=== PATIENT | female | born 1950 | race Caucasian/White ===

== ENCOUNTER → 2017-02-18 | Outpatient (CLI) | payer MEDICARE, OTHER ==
[2017-02-18 14:51] VITALS: BP 176/86; PULSE 74; RESP 16; TEMP 98.3; BMI 37.3
[2017-02-18 15:50] LABS: EKG EKG PERFORMED
[2017-02-18 16:14] LABS: CH 30.4; CHCM 33.6; HCT 41.8 % (34.0-46.0); HDW 3.32; HGB 13.8 gm/dL (11.4-16.0); MCH 30.1 pg (25.0-35.0); MCHC 33.1 g/dL (31.0-37.0); MCV 90.9 fL (80.0-100.0); Mean Platelet Volume 8.1; RDW 15.5 % (11.5-15.5); WBC 8.6 k/uL (3.8-10.6)
[2017-02-18 16:45] LABS: ALT 58 U/L (9-52); AST 58 U/L (14-36); Alkaline Phosphatase 109 U/L (38-126); Anion Gap 13 mmol/L; Blood Urea Nitrogen 19 mg/dL (7-17); Calcium 11.1 mg/dL (8.4-10.2); Carbon Dioxide 28 mmol/L (22-30); Chloride 102 mmol/L (98-107); Cholesterol 163 mg/dL (<200); Glucose 87 mg/dL (74-99); HDL Cholesterol 41 mg/dL (40-60); Iron 74 ug/dL (37-170); Non-African American GFR(MDRD) >60 (>60 ml/min/1.73 sqM); Potassium 4.3 mmol/L (3.5-5.1); Sodium 143 mmol/L (137-145); Total Bilirubin 0.8 mg/dL (0.2-1.3); Total Protein 7.9 g/dL (6.3-8.2)
[2017-02-18 16:55] LABS: % Iron Saturation 19.8 % (20-50); Total Iron Binding Capacity 374 ug/dL (265-497)
[2017-02-18 17:53] LABS: Vitamin B12 618 pg/mL
[2017-02-21 14:23] LABS: Anabasine Urine <2.0 ng/mL (<2.0)
--- NOTE | 2017-03-01 17:03 | P.PN ---
Progress Note - Text DATE OF SERVICE: 02/18/2017 CHIEF COMPLAINT: Initial bariatric assessment. HISTORY OF PRESENT ILLNESS: Susana Neff is a 67-year-old female who presents for the first time at the bariatric center. She has developed hypertension including diabetes from her obesity. She has tried weight loss in the past and has history of food addiction. At her height of 5 feet and 1/4 inch, her ideal body weight is 131 pounds. She comes in 199 pounds. She is 68 pounds overweight. Her body mass index is 37.3. PAST MEDICAL HISTORY: 1. Hypertension. 2. Hyperlipidemia. 3. Diabetes type 2. 4. Squamous cell cancer. PAST SURGICAL HISTORY: 1. Appendectomy. 2. Hysterectomy. 3. Cholecystectomy. 4. . 5. Excision of squamous cell cancer. MEDICATIONS: 1. Metformin. 2. Zocor. 3. Claritin. 4. Prinivil. 5. Hydrochlorothiazide. 6. Aspirin. ALLERGIES: Denies. SOCIAL HISTORY: Reports alcohol use. Lifelong non-tobacco use. FAMILY HISTORY: Pertinent for morbid obesity. Also has diabetes in her family as well as hypertension. REVIEW OF SYSTEMS: CONSTITUTIONAL: At her height of 5 feet and 1/4 inch, her ideal body weight is 131 pounds. She comes in 199 pounds. She is 68 pounds overweight. Her body mass index is 37.3. HEENT: Denies any troubles with dysphagia. No reports with troubles with vision, hearing or nosebleeds. ENDOCRINE: No reports of known thyroid disorders. Has blood sugar glucose intolerance. CARDIOVASCULAR: Has hypertension. Has hyperlipidemia. GASTROINTESTINAL: Reports gastroesophageal reflux disease. Denies any diarrhea. RESPIRATORY: Has obstructive sleep apnea. No recent pneumonia. MUSCULOSKELETAL: Has diffuse osteoarthritis including of the lower back and hips and knees. PSYCH: No history of depression or bipolar disorder. NEURO: No history of stroke or seizure disorder. HEMATOLOGIC: No reports of easy bruising or bleeding. SKIN: Past history of skin cancer. PHYSICAL EXAM: VITAL SIGNS: 5 foot 1.25, 199 pounds. Body mass index of 37.3 Vital Signs 02/18/17 14:47 Temperature 98.3 F Pulse Rate 74 Respiratory 16 Rate Blood Pressure 176/86 GENERAL: Well-developed, pleasant female in no acute distress. HEENT: No sclerae icterus. Extraocular movements grossly intact. Moist buccal mucosa. NECK: Supple without lymphadenopathy. CHEST: Nonlabored respirations. Equal bilateral excursions. ABDOMEN: Soft, nontender, nondistended. CARDIOVASCULAR: Regular rate and rhythm. MUSCULOSKELETAL: No clubbing, cyanosis, or edema. PSYCH: Appropriate affect. Alert and oriented to person, place, and time. NEURO: No focal or lateralizing signs. Cranial nerves II through XII grossly within normal limits. SKIN: Well perfused. Good skin turgor. LABS: Elevated calcium. Has elevated AST and ALT. Has low vitamin D. Laboratory Last Values WBC 8.6 k/uL (3.8-10.6) 02/18/17 15:44 RBC 4.60 m/uL (3.80-5.40) 02/18/17 15:44 Hgb 13.8 gm/dL (11.4-16.0) 02/18/17 15:44 Hct 41.8 % (34.0-46.0) 02/18/17 15:44 MCV 90.9 fL (80.0-100.0) 02/18/17 15:44 MCH 30.1 pg (25.0-35.0) 02/18/17 15:44 MCHC 33.1 g/dL (31.0-37.0) 02/18/17 15:44 RDW 15.5 % (11.5-15.5) 02/18/17 15:44 Plt Count 217 k/uL (150-450) 02/18/17 15:44 Sodium 143 mmol/L (137-145) 02/18/17 15:44 Potassium 4.3 mmol/L (3.5-5.1) 02/18/17 15:44 Chloride 102 mmol/L (98-107) 02/18/17 15:44 Carbon Dioxide 28 mmol/L (22-30) 02/18/17 15:44 Anion Gap 13 mmol/L 02/18/17 15:44 BUN 19 mg/dL (7-17) H 02/18/17 15:44 Creatinine 0.70 mg/dL (0.52-1.04) 02/18/17 15:44 Est GFR (MDRD) Af Amer >60 (>60 ml/min/1.73 sqM) 02/18/17 15:44 Est GFR (MDRD) Non-Af >60 (>60 ml/min/1.73 sqM) 02/18/17 15:44 Glucose 87 mg/dL (74-99) 02/18/17 15:44 Calcium 11.1 mg/dL (8.4-10.2) H 02/18/17 15:44 Iron 74 ug/dL (37-170) 02/18/17 15:44 TIBC 374 ug/dL (265-497) 02/18/17 15:44 % Saturation 19.8 % (20-50) L 02/18/17 15:44 Ferritin 90 ng/mL (11-264) 02/18/17 15:44 Total Bilirubin 0.8 mg/dL (0.2-1.3) 02/18/17 15:44 AST 58 U/L (14-36) H 02/18/17 15:44 ALT 58 U/L (9-52) H 02/18/17 15:44 Alkaline Phosphatase 109 U/L (38-126) 02/18/17 15:44 Total Protein 7.9 g/dL (6.3-8.2) 02/18/17 15:44 Albumin 4.5 g/dL (3.5-5.0) 02/18/17 15:44 Triglycerides 213 mg/dL (<150) H 02/18/17 15:44 Cholesterol 163 mg/dL (<200) 02/18/17 15:44 LDL Cholesterol, Calc 79 mg/dL (0-99) 02/18/17 15:44 HDL Cholesterol 41 mg/dL (40-60) 02/18/17 15:44 Vitamin B1 70 ug/L (38-122) 02/18/17 15:44 Vitamin B12 618 pg/mL 02/18/17 15:44 Vitamin D 25-Hydroxy 16.1 ng/mL (30.0-100.0) L 02/18/17 15:44 Folate 12.00 ng/mL 02/18/17 15:44 TSH 0.582 mIU/L (0.465-4.680) 02/18/17 15:44 Urine Cotinine <5.0 ng/mL (<5.0) 02/18/17 15:44 Urine Nicotine <2.0 ng/mL (<2.0) 02/18/17 15:44 Urine Anabasine <2.0 ng/mL (<2.0) 02/18/17 15:44 EKG EKG PERFORMED 02/18/17 15:44 ASSESSMENT: 1. Morbid obesity due to excess calories. 2. Body mass index 37.3. 3. Osteoarthritis of bilateral hips. 4. Osteoarthritis of lower back. 5. Family history of morbid obesity. 6. Family history of diabetes type 2. 7. Hypertensive heart disease. 8. History of elevated liver enzymes. 9. Gastroesophageal reflux disease. 10. Dietary surveillance and counseling. 11. Elevated AST. 12. Elevated ALT. 13. Hypertriglyceridemia. 14. Hypercalcemia. 15. Diabetes type 2. 16. Vitamin D deficiency. PLAN: 1. Recommend bariatric metabolic panel. 2. Psych assessment per insurance guideline. 3. Medical risk assessment. 4. Recommend upper endoscopy for gastroesophageal reflux disease. 5. Vitamin D treatment of his 50,000 units weekly. 6. Benefits and risks of all bariatric procedures were described in detail including band, sleeve, gastric bypass.
== END | disposition home or self-care (01) ==
LOC: BARWHC3 13:27
PROVIDERS: ATTEND Surgery Plastic and Reconstructive Surgery
DX: Z48.815 Encounter for surgical aftercare following surgery on the digestive system (principal); E66.01 Morbid (severe) obesity due to excess calories; M16.0 Bilateral primary osteoarthritis of hip; M47.816 Spondylosis without myelopathy or radiculopathy, lumbar region; I11.9 Hypertensive heart disease without heart failure; K21.9 Gastro-esophageal reflux disease without esophagitis; E11.9 Type 2 diabetes mellitus without complications; E78.00 Pure hypercholesterolemia, unspecified; E83.52 Hypercalcemia; E55.9 Vitamin D deficiency, unspecified; R74.0 Nonspecific elevation of levels of transaminase and lactic acid dehydrogenase [LDH]; D50.8 Other iron deficiency anemias; E44.0 Moderate protein-calorie malnutrition; Z79.82 Long term (current) use of aspirin; Z79.899 Other long term (current) drug therapy; Z98.84 Bariatric surgery status; Z68.37 Body mass index [BMI] 37.0-37.9, adult
CPT/HCPCS: 84425; 80061; 80053; 82607; 82728; 82746; 83540; 83550; 84443; 85027; 82306; 93005; G0480; G0463; 80323; 99211

== ENCOUNTER 2017-03-11 07:17 | Day surgery (SDC) | payer MEDICARE, OTHER ==
[2017-03-09 17:47] VITALS: BMI 38.5
[~2017-03-11 07:17] MED LIST: LACTATED RINGERS 1,000 ML IV SCH
[2017-03-11 07:40] VITALS: TEMP 97.4
[2017-03-11] MEDS ORDERED: LIDOCAINE 1% 20 ML VIAL (10MG/ML) FOR IV START INTRADERMA ONE (07:52)
[2017-03-11 07:55] LABS: Glucose,Whole Blood 112 mg/dL (75-99)
[2017-03-11] MEDS ORDERED: PROPOFOL 10 MG/ML 100 ML VIAL IV ONE (07:58)
--- NOTE | 2017-03-11 08:00 | P.GSHP ---
History of Present Illness H&P Date: 03/11/17 CHIEF COMPLAINT: GERD HISTORY OF PRESENT ILLNESS: The patient is a 67-year-old female who presents reports gastroesophageal reflux disease. Upper endoscopy was offered for further evaluation and management. PAST MEDICAL HISTORY: Please see list. PAST SURGICAL HISTORY: Please see list. MEDICATIONS: Please see list. ALLERGIES: Please see list. SOCIAL HISTORY: No illicit drug use FAMILY HISTORY: No reports of Crohn disease or ulcerative colitis. REVIEW OF ORGAN SYSTEMS: CONSTITUTIONAL: No reports of fevers or chills. GI: Denies any blood in stools or constipation. PHYSICAL EXAM: VITAL SIGNS: Stable GENERAL: Well-developed and pleasant in no acute distress. HEENT: No scleral icterus. Extraocular movements grossly intact. Moist buccal mucosa. NECK: Supple without lymphadenopathy. CHEST: Unlabored respirations. Equal bilateral excursions. CARDIOVASCULAR: Regular rate and rhythm. Distal 2+ pulses. ABDOMEN: Soft, nondistended. MUSCULOSKELETAL: No clubbing, cyanosis, or edema. ASSESSMENT: 1. Gastroesophageal reflux disease PLAN: 1. Recommend proceeding with an upper endoscopy Past Medical History Past Medical History: Cancer, Diabetes Mellitus, Hyperlipidemia, Hypertension Additional Past Medical History / Comment(s): SQUAMOUS CELL CA RT EAR, STATES PRE DIABETIC History of Any Multi-Drug Resistant Organisms: None Reported Past Surgical History: Appendectomy, Section, Cholecystectomy, Hysterectomy Additional Past Surgical History / Comment(s): 02/07/16 ROBOTIC ASSISTED LAPAROSCOPIC HYSTERECTOMY WITH BSO-VULVAR BX & LYSIS OF ADHESIONS, X 2 , D & C WITH BX VULVAR LESIONS, SQUAMOUS CELL CA REMOVED RT EAR WITH SKIN GRAFT FROM RT ARM. Past Anesthesia/Blood Transfusion Reactions: No Reported Reaction Smoking Status: Never smoker - Past Family History Mother Family Medical History: No Reported History Father Additional Family Medical History / Comment(s): OPEN HEART-REPLACEMENT VALVE - FROM PNEUMONIA Medications and Allergies Home Medications Medication Instructions Recorded Confirmed Type Aspirin EC [Ecotrin Low Dose] 81 mg PO DAILY 11/17/14 03/11/17 History Hydrochlorothiazide [Hydrodiuril] 12.5 mg PO DAILY 11/17/14 03/11/17 History Lisinopril [Prinivil] 20 mg PO DAILY 11/17/14 03/11/17 History Simvastatin [Zocor] 20 mg PO HS 11/17/14 03/11/17 History metFORMIN HCL [Glucophage] 500 mg PO HS 11/17/14 03/11/17 History Loratadine [Claritin] 10 mg PO DAILY 10/24/15 03/11/17 History Allergies Allergy/AdvReac Type Severity Reaction Status Date / Time No Known Allergies Allergy Verified 03/11/17 07:28 Surgical - Exam Vital Signs Temp Pulse Resp BP Pulse Ox 97.4 F L 67 18 133/75 96 03/11/17 07:38 03/11/17 07:38 03/11/17 07:38 03/11/17 07:38 03/11/17 07:38 Results - Labs Abnormal Lab Results - Last 24 Hours (Table) 03/11/17 Range/Units 07:46 POC Glucose (mg/dL) 112 H (75-99) mg/dL
--- NOTE | 2017-03-11 08:22 | P.PCN ---
Date of Procedure: 03/11/17 Preoperative Diagnosis: Postoperative Diagnosis: Procedure(s) Performed: Implants: Indications for Procedure: Operative Findings: Description of Procedure: PREOPERATIVE DIAGNOSIS: Gastroesophageal reflux disease. Morbid obesity. POSTOPERATIVE DIAGNOSIS: Morbid obesity. Gastritis. Gastroesophageal reflux disease. Gastric polyps. OPERATION: Esophagogastroduodenoscopy with biopsies along antrum and gastric cardia. SURGEON: Mara Orozco MD ANESTHESIA: MAC. INDICATIONS: The patient is a 67-year-old female who presents with a history of reflux disease. Benefits and risks of the procedure were described. Informed consent was obtained. DESCRIPTION: The patient was brought into the endoscopy suite and laid in the left lateral decubitus position. An Olympus gastroscope was passed along the posterior oropharynx down to the distal esophagus where the squamocolumnar junction was encountered at 35 cm from the incisors. The stomach was entered and no bile reflux was found. Additional findings are listed below. Biopsies with cold forceps were obtained of the antrum. The first through third portion of the duodenum was examined and unremarkable. Retroflexion of the scope confirmed Hill grade 2 lower esophageal valve. The squamocolumnar junction demostrated LA grade A erosive esophagitis. The stomach was desufflated. The patient tolerated the procedure well. FINDINGS: Squamocolumnar junction 36 cm from the incisors. Diaphragmatic hiatus at 36 cm. Hill grade 2 lower esophageal valve. LA grade A erosive esophagitis. No active duodenitis. Gastric polyps along the antrum, hyperplastic. Gastritis along the gastric cardia. RECOMMENDATIONS: Start medical therapy. Further recommendations pending results of pathology report. Upper endoscopy as needed. Plan - Discharge Summary New Discharge Prescriptions: New Ergocalciferol [Vitamin D2 (DRISDOL)] 50,000 unit PO Q7D #12 cap Omeprazole 40 mg PO DAILY #14 capsule.dr No Action Aspirin EC [Ecotrin Low Dose] 81 mg PO DAILY metFORMIN HCL [Glucophage] 500 mg PO HS Simvastatin [Zocor] 20 mg PO HS Lisinopril [Prinivil] 20 mg PO DAILY Hydrochlorothiazide [Hydrodiuril] 12.5 mg PO DAILY Loratadine [Claritin] 10 mg PO DAILY Discharge Medication List Aspirin EC [Ecotrin Low Dose] 81 mg PO DAILY 11/17/14 [History] Hydrochlorothiazide [Hydrodiuril] 12.5 mg PO DAILY 11/17/14 [History] Lisinopril [Prinivil] 20 mg PO DAILY 11/17/14 [History] Simvastatin [Zocor] 20 mg PO HS 11/17/14 [History] metFORMIN HCL [Glucophage] 500 mg PO HS 11/17/14 [History] Loratadine [Claritin] 10 mg PO DAILY 10/24/15 [History] Ergocalciferol [Vitamin D2 (DRISDOL)] 50,000 unit PO Q7D #12 cap 03/11/17 [Rx] Omeprazole 40 mg PO DAILY #14 capsule.dr 03/11/17 [Rx] Follow up Appointment(s)/Referral(s): Mara Orozco MD [STAFF PHYSICIAN] - 03/26/17 Patient Instructions/Handouts: *[facility] - (Anesthesia) Endoscopy Discharge Instructions, Gastritis (GEN), Upper Endoscopy (DC), Vitamin D (By mouth), Vitamin D Deficiency (GEN) Discharge Disposition: HOME SELF-CARE
[2017-03-11 08:30] VITALS: BP 116/61; PULSE 76; RESP 18
== END 2017-03-11 08:55 | disposition home or self-care (01) ==
LOC: ORWHC2ENDO 07:17
PROVIDERS: ATTEND Surgery Plastic and Reconstructive Surgery
DX: K29.50 Unspecified chronic gastritis without bleeding (principal); K21.0 Gastro-esophageal reflux disease with esophagitis; I10 Essential (primary) hypertension; E78.5 Hyperlipidemia, unspecified; E11.9 Type 2 diabetes mellitus without complications; K31.7 Polyp of stomach and duodenum; E66.01 Morbid (severe) obesity due to excess calories; Z95.2 Presence of prosthetic heart valve; Z79.82 Long term (current) use of aspirin; Z79.899 Other long term (current) drug therapy; Z79.84 Long term (current) use of oral hypoglycemic drugs; Z68.38 Body mass index [BMI] 38.0-38.9, adult; Z85.828 Personal history of other malignant neoplasm of skin; Z90.710 Acquired absence of both cervix and uterus
CPT/HCPCS: 88305; 88342; 43239; J2704

== ENCOUNTER → 2017-03-26 | Outpatient (CLI) | payer MEDICARE, OTHER ==
[2017-03-26 09:44] VITALS: BP 166/80; PULSE 66; RESP 20; TEMP 97.8; BMI 37.0
[2017-03-26 11:30] LABS: ALT 49 U/L (9-52); AST 45 U/L (14-36); Alkaline Phosphatase 102 U/L (38-126); Anion Gap 9 mmol/L; Blood Urea Nitrogen 24 mg/dL (7-17); Calcium 10.8 mg/dL (8.4-10.2); Carbon Dioxide 28 mmol/L (22-30); Chloride 102 mmol/L (98-107); Glucose 106 mg/dL (74-99); Non-African American GFR(MDRD) >60 (>60 ml/min/1.73 sqM); Potassium 4.9 mmol/L (3.5-5.1); Sodium 139 mmol/L (137-145); Total Bilirubin 0.9 mg/dL (0.2-1.3); Total Protein 7.7 g/dL (6.3-8.2)
--- NOTE | 2017-04-18 21:36 | P.PN ---
Progress Note - Text DATE OF SERVICE: 03/26/2017 CHIEF COMPLAINT: Bariatric assessment. HISTORY OF PRESENT ILLNESS: Susana Neff is a 67-year-old female who presented to the bariatric Center last month for evaluation of bariatric procedures. She has developed hypertension including diabetes from her obesity. At her height of 5 feet and 1. 25 inch, her ideal body weight is 131 pounds. She comes in 197 pounds. She has lost 2 pounds in 1 month. She is 66 pounds overweight. Her body mass index is down from 37.3 to 37.0. She has also completed upper endoscopy. PAST MEDICAL HISTORY: 1. Hypertension. 2. Hyperlipidemia. 3. Diabetes type 2. 4. Squamous cell cancer. PAST SURGICAL HISTORY: 1. Appendectomy. 2. Hysterectomy. 3. Cholecystectomy. 4. . 5. Excision of squamous cell cancer. MEDICATIONS: 1. Metformin. 2. Zocor. 3. Claritin. 4. Prinivil. 5. Hydrochlorothiazide. 6. Aspirin. ALLERGIES: Denies. SOCIAL HISTORY: Reports alcohol use. Lifelong non-tobacco use. FAMILY HISTORY: Pertinent for morbid obesity. Also has diabetes in her family as well as hypertension. REVIEW OF SYSTEMS: CONSTITUTIONAL: At her height of 5 feet and 1.25 inch, her ideal body weight is 131 pounds. She comes in 197 pounds. She is 66 pounds overweight. Her body mass index is 37.3. HEENT: Denies any troubles with dysphagia. No reports with troubles with vision , hearing or nosebleeds. ENDOCRINE: No reports of known thyroid disorders. Has blood sugar glucose intolerance. CARDIOVASCULAR: Has hypertension. Has hyperlipidemia. GASTROINTESTINAL: Reports gastroesophageal reflux disease. Denies any diarrhea. RESPIRATORY: Has obstructive sleep apnea. No recent pneumonia. MUSCULOSKELETAL: Has diffuse osteoarthritis including of the lower back and hips and knees. PSYCH: No history of depression or bipolar disorder. NEURO: No history of stroke or seizure disorder. HEMATOLOGIC: No reports of easy bruising or bleeding. SKIN: Past history of skin cancer. No active rash. PHYSICAL EXAM: VITAL SIGNS: 5 foot 1.25, 197 pounds. Body mass index of 37.0. Vital Signs Temp 97.8 F 03/26/17 09:27 Pulse 66 03/26/17 09:27 Resp 20 03/26/17 09:27 BP 166/80 03/26/17 09:27 Pulse Ox GENERAL: Well-developed, pleasant female in no acute distress. HEENT: No sclerae icterus. Extraocular movements grossly intact. Moist buccal mucosa. NECK: Supple without lymphadenopathy. CHEST: Nonlabored respirations. Equal bilateral excursions. ABDOMEN: Soft, nontender, nondistended. CARDIOVASCULAR: Regular rate and rhythm. MUSCULOSKELETAL: No clubbing, cyanosis, or edema. PSYCH: Appropriate affect. Alert and oriented to person, place, and time. NEURO: No focal or lateralizing signs. Cranial nerves II through XII grossly within normal limits. SKIN: Well perfused. Good skin turgor. EGD FINDINGS: Squamocolumnar junction 36 cm from the incisors. Diaphragmatic hiatus at 36 cm. Hill grade 2 lower esophageal valve. LA grade A erosive esophagitis. No active duodenitis. Gastric polyps along the antrum, hyperplastic. Gastritis along the gastric cardia. PATHOLOGY: Helicobacter pylori gastritis. LABS: Elevated calcium. Has elevated AST and ALT. Has low vitamin D. Laboratory Last Values WBC 8.6 k/uL (3.8-10.6) 02/18/17 15:44 RBC 4.60 m/uL (3.80-5.40) 02/18/17 15:44 Hgb 13.8 gm/dL (11.4-16.0) 02/18/17 15:44 Hct 41.8 % (34.0-46.0) 02/18/17 15:44 MCV 90.9 fL (80.0-100.0) 02/18/17 15:44 MCH 30.1 pg (25.0-35.0) 02/18/17 15:44 MCHC 33.1 g/dL (31.0-37.0) 02/18/17 15:44 RDW 15.5 % (11.5-15.5) 02/18/17 15:44 Plt Count 217 k/uL (150-450) 02/18/17 15:44 Sodium 143 mmol/L (137-145) 02/18/17 15:44 Potassium 4.3 mmol/L (3.5-5.1) 02/18/17 15:44 Chloride 102 mmol/L (98-107) 02/18/17 15:44 Carbon Dioxide 28 mmol/L (22-30) 02/18/17 15:44 Anion Gap 13 mmol/L 02/18/17 15:44 BUN 19 mg/dL (7-17) H 02/18/17 15:44 Creatinine 0.70 mg/dL (0.52-1.04) 02/18/17 15:44 Est GFR (MDRD) Af Amer >60 (>60 ml/min/1.73 sqM) 02/18/17 15:44 Est GFR (MDRD) Non-Af >60 (>60 ml/min/1.73 sqM) 02/18/17 15:44 Glucose 87 mg/dL (74-99) 02/18/17 15:44 Calcium 11.1 mg/dL (8.4-10.2) H 02/18/17 15:44 Iron 74 ug/dL (37-170) 02/18/17 15:44 TIBC 374 ug/dL (265-497) 02/18/17 15:44 % Saturation 19.8 % (20-50) L 02/18/17 15:44 Ferritin 90 ng/mL (11-264) 02/18/17 15:44 Total Bilirubin 0.8 mg/dL (0.2-1.3) 02/18/17 15:44 AST 58 U/L (14-36) H 02/18/17 15:44 ALT 58 U/L (9-52) H 02/18/17 15:44 Alkaline Phosphatase 109 U/L (38-126) 02/18/17 15:44 Total Protein 7.9 g/dL (6.3-8.2) 02/18/17 15:44 Albumin 4.5 g/dL (3.5-5.0) 02/18/17 15:44 Triglycerides 213 mg/dL (<150) H 02/18/17 15:44 Cholesterol 163 mg/dL (<200) 02/18/17 15:44 LDL Cholesterol, Calc 79 mg/dL (0-99) 02/18/17 15:44 HDL Cholesterol 41 mg/dL (40-60) 02/18/17 15:44 Vitamin B1 70 ug/L (38-122) 02/18/17 15:44 Vitamin B12 618 pg/mL 02/18/17 15:44 Vitamin D 25-Hydroxy 16.1 ng/mL (30.0-100.0) L 02/18/17 15:44 Folate 12.00 ng/mL 02/18/17 15:44 TSH 0.582 mIU/L (0.465-4.680) 02/18/17 15:44 Urine Cotinine <5.0 ng/mL (<5.0) 02/18/17 15:44 Urine Nicotine <2.0 ng/mL (<2.0) 02/18/17 15:44 Urine Anabasine <2.0 ng/mL (<2.0) 02/18/17 15:44 EKG EKG PERFORMED 02/18/17 15:44 EKG: Right bundle branch block and abnormal. ASSESSMENT: 1. Morbid obesity due to excess calories. 2. Body mass index 37.3 down to 37.0. 3. Osteoarthritis of bilateral hips. 4. Osteoarthritis of lower back. 5. Family history of morbid obesity. 6. Family history of diabetes type 2. 7. Hypertensive heart disease. 8. History of elevated liver enzymes. 9. Gastroesophageal reflux disease. 10. Dietary surveillance and counseling. 11. Elevated AST. 12. Elevated ALT. 13. Hypertriglyceridemia. 14. Hypercalcemia. 15. Diabetes type 2. 16. Vitamin D deficiency. PLAN: 1. Treatment for Helicobacter has been started for at least 2 weeks course. 2. Vitamin D supplement 50,000 units weekly prescribed. 3. Calcium level is moderately elevated. Recommend parathyroid hormone level. 4. Recommend referral to slitter scorer cut off operator for abnormal EKG and with history of hypertensive heart disease. 5. Recommend evaluation and treatment for sleep apnea. Referral to sleep center advised.
== END | disposition home or self-care (01) ==
LOC: BARWHC3 09:00
PROVIDERS: ATTEND Surgery Plastic and Reconstructive Surgery
DX: E66.01 Morbid (severe) obesity due to excess calories (principal); M16.0 Bilateral primary osteoarthritis of hip; M47.816 Spondylosis without myelopathy or radiculopathy, lumbar region; I11.9 Hypertensive heart disease without heart failure; K21.9 Gastro-esophageal reflux disease without esophagitis; R74.8 Abnormal levels of other serum enzymes; E78.1 Pure hyperglyceridemia; E11.9 Type 2 diabetes mellitus without complications; E21.1 Secondary hyperparathyroidism, not elsewhere classified; E55.9 Vitamin D deficiency, unspecified; R06.83 Snoring; F32.9 Major depressive disorder, single episode, unspecified; Z68.37 Body mass index [BMI] 37.0-37.9, adult; Z71.3 Dietary counseling and surveillance
CPT/HCPCS: 80053; 83970; 36415; G0463; 99211

== ENCOUNTER → 2017-05-21 | Outpatient (CLI) | payer MEDICARE, OTHER ==
--- NOTE | 2017-05-21 16:38 | CONS ---
CONSULTATION DATE OF SERVICE: 05/21/2017 67-year-old lady has been evaluated in Sleep Center for possible obstructive sleep apnea-hypopnea syndrome. HISTORY OF PRESENT ILLNESS/SLEEP WAKE EVALUATION: Patient usual sleep schedule from around 9:30 or 10:00 p.m. until 8:00 or 9:00 a.m. Sometimes she has problem with falling asleep. She has TV set in bedroom. Prefers to sleep on the side, not on the back position. She wakes up from sleep with nocturia. Her grandchildren told her about possible snoring. [place] Sleepiness Scale today is 5. The patient has been referred to Sleep Center as a part of preparation for gastric sleeve surgery. PAST MEDICAL HISTORY: Positive for hypertension, hyperlipidemia, diabetes mellitus, acid reflux. PAST SURGICAL HISTORY: , appendectomy, cholecystectomy, squamous cell carcinoma removed from right ear. MEDICATIONS: Lisinopril, simvastatin, hydrochlorothiazide, loratadine, baby aspirin, metformin, omeprazole. SOCIAL HISTORY: Negative for smoking. Alcohol consumption occasional. FAMILY HISTORY: Hypertension, heart problems, hyperlipidemia, bronchitis, snoring, acid reflux, diabetes. REVIEW OF SYSTEMS: Sometimes awakenings from sleep, sometimes tiredness during the day. PHYSICAL EXAM: GENERAL A lady without distress VITAL SIGNS BP 127/74, HR 90, RR 16, height 5 feet 1 inch, weight 195, BMI 36.8. Neck 14-1/2 inches in circumference. Temperature 98.2. Oxygen saturation on room air 96%. HEENT PERRLA, EOMI, evaluation of oropharynx showed moderately low position of soft palate, wide pillars. Small oropharyngeal airspace. Thyroid possibly slightly palpable. NECK Supple, no JVD. Thyroid is not palpable. LUNGS Clear to percussion and to auscultation. Good air exchange. No wheezing or rhonchi. HEART S1, S2 regular. No murmurs, gallops, or rubs. ABDOMEN Obese. Soft and nontender. Bowel sounds are present. No organomegaly appreciated. EXTREMITIES No clubbing or cyanosis. QUALITY CONTROL ASSISTANT Awake, alert, and oriented X3. Cranial nerves 2 to 7 intact. There is no fasciculation or atrophy. noted. No focal deficits observed. IMPRESSION: 1. Awakenings from sleep with nocturia, snoring, small oropharyngeal air space, obesity, obstructive sleep apnea-hypopnea syndrome. 2. Obesity BMI 36.8. 3. Hypertension. 4. Hyperlipidemia. 5. Diabetes mellitus. 6. Acid reflux. 7. Status post . 8. Status post appendectomy. 9. Status post cholecystectomy. 10.Status post squamous cell carcinoma removed from right ear skin. PLAN: 1. Polysomnography for evaluation of patient's breathing during sleep. 2. CPAP/BiPAP titration if sleep study confirms obstructive sleep apnea-hypopnea syndrome. 3. Preferable position during sleep on the side. 4. No driving if patient feels any sleepiness. Patient is aware of civil and criminal liability for unsafe driving. 5. I will see patient for follow up visit to explain results of testing and following plan. Thank you very much for referring this patient for consultation. Sincerely, Allen Culp MD, PhD, FAASM Diplomat of [employer] [place] Operator [facility] [place] MMODL / EHN: [id number] /
== END | disposition home or self-care (01) ==
LOC: SLEEP 15:31
PROVIDERS: ATTEND Internal Medicine
DX: G47.33 Obstructive sleep apnea (adult) (pediatric) (principal); I10 Essential (primary) hypertension; E78.5 Hyperlipidemia, unspecified; E11.9 Type 2 diabetes mellitus without complications; K21.9 Gastro-esophageal reflux disease without esophagitis; E66.9 Obesity, unspecified; Z68.36 Body mass index [BMI] 36.0-36.9, adult; Z90.49 Acquired absence of other specified parts of digestive tract; Z90.89 Acquired absence of other organs; Z98.890 Other specified postprocedural states; Z79.899 Other long term (current) drug therapy; Z79.82 Long term (current) use of aspirin
CPT/HCPCS: 99211

== ENCOUNTER → 2017-09-10 | Outpatient (CLI) | payer MEDICARE, OTHER ==
--- NOTE | 2017-09-10 12:05 | PN ---
PROGRESS NOTE DATE OF SERVICE: 09/10/2017 A 67-year-old lady who has been followed in the Sleep Center for treatment of obstructive sleep apnea-hypopnea syndrome. Recently, patient had been diagnosed with moderate close to severe obstructive sleep apnea-hypopnea syndrome and had diagnostics polysomnogram and CPAP titration. I discussed results of sleep studies with patient in details. She was started on treatment with CPAP and presently came for first followup visit after she was started on treatment with CPAP. She is trying to use equipment every night but feels some discomfort related to her nasal mask. [place] Sleepiness Scale today is 9. I checked CPAP unit. CPAP pressure is 7 cm of water as it was recommended. Usage is 100% of the time more than 4 hours, average 7.3 hours. Leak is only 5 L/minute. Apnea- hypopnea index for the last month is only 1.3, which is totally perfect. MEDICATIONS: Lisinopril, simvastatin, hydrochlorothiazide, loratadine, aspirin, metformin, omeprazole. PHYSICAL EXAM: Patient in no distress. BP 146/77, HR 72, RR 16, weight 199, temp 97.8, oxygen saturation at room air 97%. OROPHARYNX: Extremely low position of soft palate. ABDOMEN: Obese. Neck Supple, no JVD. Thyroid is not palpable. LUNGS Clear to percussion and to auscultation. Good air exchange. No wheezing or rhonchi. HEART S1, S2 regular. No murmurs, gallops, or rubs. EXTREMITIES No clubbing or cyanosis. SUPERVISOR LUMP ROOM Awake, alert, and oriented X3. Cranial nerves 2 to 7 intact. There is no fasciculation or atrophy. noted. No focal deficits observed. IMPRESSION: 1. Moderate, close to severe obstructive sleep apnea-hypopnea syndrome; apnea-hypopnea index 29.3 with oxygen desaturation to 80.6%. on full control with CPAP at 7 cm of water. Patient demonstrated 100% compliance with treatment, benefitting from treatment. 2. Obesity, weight 4 pounds more than during previous visit. 3. Hypertension. 4. Moderate periodic limb movements have been documented during titration, very minimal periodic limb movements during diagnostic night. 5. Hypertension. 6. Hyperlipidemia. 7. Diabetes mellitus. 8. Acid reflux. 9. Status post . 10.Status post appendectomy. 11.Status post cholecystectomy. 12.Status post squamous cell carcinoma removed from the skin of the right ear. PLAN: 1. We will try to fit patient with nasal pillow mask and she will receive the mask is she will like it. 2. Continue to use CPAP equipment every night for the whole night. 3. Losing weight. 4. Sleep hygiene with regular time in bed for at least 8 hours. 5. No driving if feeling any sleepiness. Thank you very much for allowing me to participate in management of your patient. Sincerely, Allen Culp MD, PhD, FAASM Diplomat of [employer] Assembler [facility] [place] MMODL / IJN: [id number] /
== END | disposition home or self-care (01) ==
LOC: SLEEP 10:19
PROVIDERS: ATTEND Internal Medicine
DX: G47.33 Obstructive sleep apnea (adult) (pediatric) (principal); G47.61 Periodic limb movement disorder; E78.5 Hyperlipidemia, unspecified; E66.9 Obesity, unspecified; K21.9 Gastro-esophageal reflux disease without esophagitis; E11.9 Type 2 diabetes mellitus without complications; I10 Essential (primary) hypertension; Z99.89 Dependence on other enabling machines and devices; Z79.84 Long term (current) use of oral hypoglycemic drugs; Z79.82 Long term (current) use of aspirin; Z79.899 Other long term (current) drug therapy; Z90.89 Acquired absence of other organs; Z90.49 Acquired absence of other specified parts of digestive tract; Z98.890 Other specified postprocedural states; Z85.828 Personal history of other malignant neoplasm of skin